=== PATIENT | male | born 1940 | race Caucasian/White ===

== ENCOUNTER → 2017-05-31 07:53 | Outpatient (CLI) | payer MEDICARE, SELFPAY ==
[2017-05-31 14:45] LABS: PHA INR Fingerstick 1.5 (0.9-1.1)
== END | disposition home or self-care (01) ==
PROVIDERS: PCP Family Medicine; Visit Provider Urology
DX: Z79.01 Long term (current) use of anticoagulants (principal); Z51.81 Encounter for therapeutic drug level monitoring
CPT/HCPCS: 85610; G0463

== ENCOUNTER 2017-06-07 08:33 | Outpatient (CLI) | payer MEDICARE, SELFPAY ==
[2017-07-26 10:21] LABS: PHA INR Fingerstick 1.7 (0.9-1.1)
== END 2017-06-07 11:00 ==
LOC: ACC 08:35
PROVIDERS: PCP Family Medicine; Visit Provider Urology
DX: Z79.01 Long term (current) use of anticoagulants (principal); Z51.81 Encounter for therapeutic drug level monitoring; I48.91 Unspecified atrial fibrillation
CPT/HCPCS: 85610; 99211; G0463

== ENCOUNTER 2017-06-16 07:35 | Outpatient (CLI) | payer MEDICARE, SELFPAY | END 2017-06-16 15:24 | disposition home or self-care (01) | LOC: ACC 07:36 | PROVIDERS: PCP Family Medicine; Visit Provider Urology | DX: Z79.01 Long term (current) use of anticoagulants (principal); Z51.81 Encounter for therapeutic drug level monitoring; I48.91 Unspecified atrial fibrillation | CPT/HCPCS: 85610; 99211; G0463 ==

== ENCOUNTER 2017-06-30 07:43 | Outpatient (CLI) | payer MEDICARE, SELFPAY ==
[2017-06-30 11:47] LABS: PHA INR Fingerstick 1.9 (0.9-1.1)
== END 2017-06-30 11:49 | disposition home or self-care (01) ==
LOC: ACC 07:44
PROVIDERS: PCP Family Medicine; Visit Provider Urology
DX: Z79.01 Long term (current) use of anticoagulants (principal); Z51.81 Encounter for therapeutic drug level monitoring; I48.91 Unspecified atrial fibrillation
CPT/HCPCS: 85610; 99211; G0463

== ENCOUNTER 2017-07-12 06:46 | Outpatient (CLI) | payer MEDICARE, SELFPAY ==
--- NOTE | 2017-07-12 07:15 | CI_ITS ---
Cerebrovascular Exam Indications: Follow-up carotid 433.10. IMPRESSIONS 1. The bilateral vertebral arteries are patent with normal antegrade flow. 2. Study suggests less than 20% stenosis involving the right internal carotid artery. 3. Study suggests 50-69% stenosis involving the left internal carotid artery. Carotid duplex study. Complete study and Doppler flow study including spectral analysis, color and mauricio scale imaging. Height: Height: 193cm. Height: 76in. Weight: Weight: 100.2kg. Weight: 220.5lb. Body mass index: BMI: 26.9kg/m^2. Body surface area: BSA: 2.33m^2. Location: Vascular laboratory. Patient status: Outpatient. Tables: Arterial flow: + +--------+--------+ Location V sys V ed + +--------+--------+ Right CCA - proximal 71.5cm/s 18.1cm/s + +--------+--------+ Right CCA - distal 75.4cm/s 20.4cm/s + +--------+--------+ Right ECA 83.7cm/s -------- + +--------+--------+ Right ICA - proximal 63.6cm/s 22cm/s + +--------+--------+ Right ICA - mid 61.7cm/s 24.4cm/s + +--------+--------+ Right ICA - distal 72.3cm/s 27.1cm/s + +--------+--------+ Right vertebral 38.4cm/s -------- + +--------+--------+ Left CCA - proximal 99.1cm/s 24cm/s + +--------+--------+ Left CCA - distal 121cm/s 24.4cm/s + +--------+--------+ Left ECA 103cm/s -------- + +--------+--------+ Left ICA - proximal 143cm/s 43.3cm/s + +--------+--------+ Left ICA - mid 75cm/s 25.9cm/s + +--------+--------+ Left ICA - distal 78.3cm/s 32cm/s + +--------+--------+ Left vertebral 29.2cm/s -------- + +--------+--------+ Velocity ratios: + + + + + + Right, V sys Right, V ed Left, V sys Left, V ed + + + + + + Max ICA/dist CCA 0.96 1.33 1.18 1.77 + + + + + + (Report amended ) Electronically signed by: Jan Montero [id number]
[2017-07-12 11:28] LABS: PHA INR Fingerstick 1.7 (0.9-1.1)
== END 2017-07-12 11:40 | disposition home or self-care (01) ==
LOC: RT 06:47
PROVIDERS: Urology; PCP Family Medicine; Visit Provider Internal Medicine
DX: I65.22 Occlusion and stenosis of left carotid artery (principal); Z79.01 Long term (current) use of anticoagulants; Z51.81 Encounter for therapeutic drug level monitoring; I48.91 Unspecified atrial fibrillation
CPT/HCPCS: 85610; 93880; 99211; G0463

== ENCOUNTER 2017-07-28 07:52 | Outpatient (CLI) | payer MEDICARE, SELFPAY ==
[2017-10-05 13:32] LABS: PHA INR Fingerstick 1.8 (0.9-1.1)
== END 2017-07-28 08:30 | disposition home or self-care (01) ==
LOC: ACC 07:54
PROVIDERS: PCP Family Medicine; Visit Provider Internal Medicine
DX: Z79.01 Long term (current) use of anticoagulants (principal); Z51.81 Encounter for therapeutic drug level monitoring; I48.91 Unspecified atrial fibrillation
CPT/HCPCS: 85610; 99211; G0463

== ENCOUNTER 2017-08-18 08:07 | Outpatient (CLI) | payer MEDICARE, SELFPAY ==
[2017-08-18 10:39] LABS: PHA INR Fingerstick 1.6 (0.9-1.1)
== END 2017-08-18 11:24 | disposition home or self-care (01) ==
PROVIDERS: Internal Medicine Cardiovascular Disease; PCP Family Medicine; Visit Provider Internal Medicine
DX: Z79.01 Long term (current) use of anticoagulants (principal); Z51.81 Encounter for therapeutic drug level monitoring; I48.91 Unspecified atrial fibrillation
CPT/HCPCS: 85610; 99211; G0463

== ENCOUNTER 2017-09-01 07:51 | Outpatient (CLI) | payer MEDICARE, SELFPAY ==
[2017-09-01 12:05] LABS: PHA INR Fingerstick 2.6 (0.9-1.1)
== END 2017-09-01 14:55 | disposition home or self-care (01) ==
PROVIDERS: Internal Medicine Cardiovascular Disease; PCP Family Medicine; Visit Provider Internal Medicine
DX: Z79.01 Long term (current) use of anticoagulants (principal); Z51.81 Encounter for therapeutic drug level monitoring; I48.91 Unspecified atrial fibrillation
CPT/HCPCS: 85610; 99211; G0463

== ENCOUNTER → 2017-09-18 16:01 | Outpatient (CLI) | payer MEDICARE, SELFPAY ==
[2017-09-18 16:26] LABS: Basophils % 0.3 % (0.1-2.0); Eosinophils # 0.7 K/mm3 (0.0-0.4); Eosinophils % 8.4 % (0.1-12.0); Hematocrit 35.6 % (42.0-52.0); Lymphocytes # 1.9 K/mm3 (0.7-4.5); Lymphocytes % 24.1 K/mm3 (10-50); Mean Corpuscular HGB Conc 30.9 g/dL (31.8-35.4); Mean Corpuscular Volume 84.1 fl (80-94); Monocytes # 0.5 K/mm3 (0.1-1.0); Monocytes % 6.9 % (1.7-9.3); Neutrophils # 4.7 K/mm3 (1.8-7.8); Neutrophils % 60.2 % (37.0-80.0); Platelet Count 172 K/mm3 (142-424); Red Blood Count 4.23 M/mm3 (4.60-6.20); White Blood Count 7.7 K/mm3 (4.8-10.8)
[2017-09-18 16:31] LABS: INR 2.53 (0.9-1.1); Prothrombin Time 25.4 seconds (9.4-11.8)
[2017-09-18 16:43] LABS: Activated Partial Thrombo Time 45.6 seconds (23.6-34.0)
[2017-09-18 17:51] LABS: Anion Gap 11.2 mEq/L (5-15); Blood Urea Nitrogen 22 mg/dL (7-18); Calcium 8.9 mg/dL (8.5-10.1); Carbon Dioxide 27 mmol/L (21.0-32.0); Chloride 104 mmol/L (98-107); Creatinine,Serum 1.76 mg/dL (0.70-1.30); Estimated Glomerular Filt Rate 38 ml/min (>60); Free T4 (Free Thyroxine) 0.75 ng/dl (0.76-1.46); GFR (African American) 46 ML/MIN (>60); Glucose 95 mg/dL (74-106); Potassium 5.2 mmoL/L (3.5-5.1); Sodium 137 mmol/L (136-145)
[2017-09-21 06:03] LABS: Vitamin B12 268 pg/mL (232-1245)
== END ==
PROVIDERS: PCP Family Medicine; Visit Provider Family Medicine
DX: Z01.818 Encounter for other preprocedural examination (principal); Z86.39 Personal history of other endocrine, nutritional and metabolic disease; Z79.01 Long term (current) use of anticoagulants; Z51.81 Encounter for therapeutic drug level monitoring
CPT/HCPCS: 36415; 80048; 82607; 84439; 84443; 85025; 85610; 85730

== ENCOUNTER 2017-09-22 07:58 | Outpatient (CLI) | payer MEDICARE, SELFPAY ==
[2017-09-22 16:21] LABS: PHA INR Fingerstick 2.3 (0.9-1.1)
== END 2017-09-22 16:52 | disposition home or self-care (01) ==
LOC: ACC 07:59
PROVIDERS: PCP Family Medicine; Visit Provider Internal Medicine
DX: Z79.01 Long term (current) use of anticoagulants (principal); Z51.81 Encounter for therapeutic drug level monitoring; I48.91 Unspecified atrial fibrillation
CPT/HCPCS: 85610; 99211; G0463

== ENCOUNTER 2017-10-20 08:05 | Outpatient (CLI) | payer MEDICARE, SELFPAY | END 2017-10-20 10:36 | disposition home or self-care (01) | LOC: ACC 08:06 | PROVIDERS: PCP Family Medicine; Visit Provider Internal Medicine | DX: Z79.01 Long term (current) use of anticoagulants (principal); Z51.81 Encounter for therapeutic drug level monitoring; I48.91 Unspecified atrial fibrillation | CPT/HCPCS: 85610; 99211; G0463 ==

== ENCOUNTER 2017-11-17 08:00 | Outpatient (CLI) | payer MEDICARE, SELFPAY ==
[2017-11-17 10:46] LABS: PHA INR Fingerstick 2.2 (0.9-1.1)
== END 2017-11-17 10:48 | disposition home or self-care (01) ==
LOC: ACC 08:01
PROVIDERS: Urology; PCP Family Medicine; Visit Provider Internal Medicine
DX: Z51.81 Encounter for therapeutic drug level monitoring (principal); Z79.01 Long term (current) use of anticoagulants; I48.91 Unspecified atrial fibrillation
CPT/HCPCS: 85610; 99211; G0463

== ENCOUNTER 2017-12-29 07:57 | Outpatient (CLI) | payer MEDICARE, SELFPAY ==
[2017-12-29 15:50] LABS: PHA INR Fingerstick 2.4 (0.9-1.1)
== END 2017-12-29 15:52 | disposition home or self-care (01) ==
LOC: ACC 07:58
PROVIDERS: PCP Family Medicine; Visit Provider Internal Medicine
DX: I48.91 Unspecified atrial fibrillation (principal); Z79.01 Long term (current) use of anticoagulants
CPT/HCPCS: 85610; 99211; G0463

== ENCOUNTER 2018-02-05 08:13 | Outpatient (CLI) | payer MEDICARE, SELFPAY ==
[2018-02-05 14:16] LABS: PHA INR Fingerstick 3.3 (0.9-1.1)
== END 2018-02-05 14:26 | disposition home or self-care (01) ==
LOC: ACC 08:14
PROVIDERS: Internal Medicine Cardiovascular Disease; PCP Family Medicine; Visit Provider Internal Medicine
DX: Z51.81 Encounter for therapeutic drug level monitoring (principal); Z79.01 Long term (current) use of anticoagulants; I48.91 Unspecified atrial fibrillation
CPT/HCPCS: 85610; 99211; G0463

== ENCOUNTER → 2018-02-22 09:40 | Outpatient (CLI) | payer MEDICARE, SELFPAY ==
--- NOTE | 2018-02-22 | CA_ITS ---
PROCEDURE: 2-D M-mode and color Doppler study INDICATIONS FOR THE TEST: Chest pain COPD Heart Murmur Tobacco Smoking Palpitations Fatigue Syncope Edema+ Hypertension+Diabetes Mellitus Rheumatic Fever SOB+[place] Obesity Hyperlipidemia Family History HD Additional History PACER, PARTIAL LUNG REMOVED 40YRS AGO D/T HISTOPLASMOSIS PATIENT INFORMATION HEIGHT: 77 WEIGHT:230 GENDER: Male B/P:130/72 2-D/M-MODE INTERPRETATION: 2-D MEASUREMENTS OBSERVED VALUES IN CMS Right Ventricular Dimension (RVDd) 2.2 Interventricular Septum (Thickness)(IVsd) 1.4 Left Ventricular Internal Dimensions(LVIDd) 4.8 Left Ventricular Posterior Wall (Thickness)(LVPWd) 1.2 Aortic Root 4.4 Aortic Cusp Separation 2.6 Left Atrial Dimensions (LAD) 4.6 2D 1. Left atrium is mildly enlarged, left ventricle is normal size, mild concentric left ventricular hypertrophy, visually estimated ejection fraction 55% with no regional wall motion abnormality. 2. The right atrium and right ventricle are normal size and contractility. 3. The aortic valve is minimally thickened and fibrosed. 4. The mitral and tricuspid valve leaflets are minimally thickened. 5. The pulmonic valve is poorly visualized. 6. No significant pericardial effusion noted. DOPPLER INTERROGATION: Doppler interrogation of the aortic, mitral and tricuspid valvular presence of mild mitral and tricuspid regurgitation, calculated right ventricular systolic pressure is 45 mmHg consistent with moderate pulmonary hypertension, grade 1 diastolic dysfunction seen with tissue Doppler evidence of raised left atrial pressure. CONCLUSION: 1. Mildly enlarged left atrium, normal left ventricular size, mild concentric left ventricular hypertrophy, visually estimated ejection fraction of 55% with no regional wall motion abnormality, grade 1 diastolic dysfunction seen with tissue Doppler evidence of raised left atrial pressure. 2. Mild mitral and tricuspid regurgitation, calculated right ventricular systolic pressure is 45 mmHg consistent with moderate pulmonary hypertension. 3. No significant pericardial effusion noted.
--- NOTE | 2018-02-22 10:15 | XR_ITS ---
XR chest 2V HISTORY: ITS.REASON: SOB ORDERING PHYSICIAN: Roshan Weeks MD PATIENT AGE: 77 years COMPARISON: 11/16/2014 FINDINGS: Cardiac pacemaker device is present. There is hyperinflation with attenuation of the upper lobe pulmonary vessels suspicious for COPD. There are chronic changes in the left lung base there is mild cardiomegaly without failure. There is blunting of the left CP angle which appears chronic. Mild biapical pleural thickening is noted. IMPRESSION: 1. Cardiomegaly with cardiac pacemaker device present. 2. Chronic changes with suspected COPD with chronic biapical pleural thickening and chronic changes in the left lung base. 3. No acute finding apparent
== END ==
PROVIDERS: PCP Family Medicine; Visit Provider Family Medicine
DX: R06.02 Shortness of breath (principal); R60.9 Edema, unspecified
CPT/HCPCS: 71046; 93306

== ENCOUNTER 2018-02-26 08:15 | Outpatient (CLI) | payer MEDICARE, SELFPAY ==
[2018-02-26 10:55] LABS: PHA INR Fingerstick 2.3 (0.9-1.1)
== END 2018-02-26 10:57 | disposition home or self-care (01) ==
LOC: ACC 08:16
PROVIDERS: PCP Family Medicine; Visit Provider Internal Medicine
DX: Z51.81 Encounter for therapeutic drug level monitoring (principal); Z79.01 Long term (current) use of anticoagulants; I48.91 Unspecified atrial fibrillation
CPT/HCPCS: 85610; 99211; G0463

== ENCOUNTER 2018-04-09 10:12 | Outpatient (CLI) | payer MEDICARE, SELFPAY ==
[2018-04-09 16:47] LABS: PHA INR Fingerstick 1.9 (0.9-1.1)
== END 2018-04-09 16:48 | disposition home or self-care (01) ==
LOC: ACC 10:13
PROVIDERS: Urology; PCP Family Medicine; Visit Provider Internal Medicine
DX: Z51.81 Encounter for therapeutic drug level monitoring (principal); Z79.01 Long term (current) use of anticoagulants; I48.91 Unspecified atrial fibrillation
CPT/HCPCS: 85610; 99211; G0463

== ENCOUNTER → 2018-06-27 10:26 | Outpatient (CLI) | payer MEDICARE, SELFPAY ==
--- NOTE | 2018-06-27 10:33 | XR_ITS ---
XR chest 2V HISTORY: ITS.REASON: dyspnea ORDERING PHYSICIAN: Rozina Dennis PATIENT AGE: 78 years COMPARISON: 02/22/2018 FINDINGS: The cardiomediastinal silhouette and pulmonary vascularity are within normal limits. Bipolar pacemaker is present from left subclavian approach.. Consolidation is noted in the left lung base No acute bony abnormalities. IMPRESSION: Left lower lobe infiltrate
== END ==
PROVIDERS: PCP Family Medicine; Visit Provider Urology
DX: I11.9 Hypertensive heart disease without heart failure (principal); I48.0 Paroxysmal atrial fibrillation; I65.23 Occlusion and stenosis of bilateral carotid arteries; N18.3 Chronic kidney disease, stage 3 (moderate); R06.09 Other forms of dyspnea; Z95.0 Presence of cardiac pacemaker
CPT/HCPCS: 71046

== ENCOUNTER → 2018-07-04 12:42 | Outpatient (CLI) | payer MEDICARE, SELFPAY ==
--- NOTE | 2018-07-04 12:45 | FL_ITS ---
FL barium swallow modified: 07/04/2018 12:45 PM CLINICAL HISTORY: Dysphagia ORDERING PHYSICIAN: Roshan Weeks MD PATIENT AGE: 78 years Comparison: None TECHNIQUE: Patient administered varying consistencies of barium contrast, while viewed in lateral position under real-time fluoroscopy with cine recording. FLUOROSCOPY TIME: 3 minutes and 33 seconds The study was performed in conjunction with speech pathologist. Please see that report & recommendations. FINDINGS: Patient was given varying consistencies of barium. There was delay in initiation of swallowing mechanism with residual. No aspiration. IMPRESSION: Delay in initiation of the swallowing mechanism with moderate residual within the piriform sinuses. No obvious aspiration.
--- NOTE | 2018-07-04 15:04 | HMH.SLMBS2 ---
Speech & Language Evaluation Speech/Language Mod Barium Swallow Start: 07/04/18 13:51 Freq: once Status: Complete Protocol: Document 07/04/18 13:51 CHELLY (Rec: 07/04/18 15:04 CHELLY [id number]) [facility] [place] Diet Dietary Recommendations Dysphagia Mechanical Soft,Thin Liquids Treatment/Strategies Treatment Recommendation Chewing Exercises,Pharyngeal Resistive Exer,Compens. Strategy Educat. Strategy/Precaution Recommend Sitting Upright (90 deg), Liquids from Straw,Small Bites and Sips,Alternate Liquids/ Solids Mod Barium Swallow Impressions Summary and Impressions Oral Phase Impression Moderate Impairment Oral Phase Summary Mr. Beasley was given the following consistencies: thins via straw and open cup, nectar via straw and open cup, honey via straw and open cup, pudding, pureed, mechanical soft. Mr. Beasley exhibited moderate impairment with bolus formation, mastication, and decreased A/P bolus propulsion . Pharyngeal Phase Impression Moderate Impairment Pharyngeal Phase Summary Mr. Beasley exhibits pharyngeal residue with all consistencies. Mr. Beasley did not aspirate during evaluation however he is at risk for aspiration with all consistencies. Speech/Language MBS Assessment/Goals/Plan Assessment Date of Evaluation: 07/04/18 Evaluation Type Initial Certification Assessment/Problems Dysphagia Does Patient Qualify for Service Yes Qualify/Failure Comment Mr. Beasley is at risk for aspiration with all consistencies. Plan Pt/Guardian verbally ack understanding Yes: of dx/prognosis/goals G -code Required Yes G-CODES ST Current Status [id number] ST Current Status Modifier CL-At least 60% but less than 80% impaired, limited or restricted ST Goal Status [id number] ST Goal Status Modifier CK-At least 40% but less than 60% impaired, limited or restricted Mod Barium Swallow Setup Exam Setup Radiologist
== END ==
PROVIDERS: PCP Family Medicine; Visit Provider Family Medicine
DX: R13.10 Dysphagia, unspecified (principal)
CPT/HCPCS: 70371; 92611

== ENCOUNTER 2020-03-19 08:27 | Outpatient (CLI) | payer MEDICARE, SELFPAY ==
[2020-03-19] VITALS (10 sets, daily range): BP systolic 102–139; BP diastolic 53–81; PULSE 61–80; RESP 18; TEMP 36.5–36.6; O2SAT 92–97
== END 2020-03-19 11:33 | disposition home health service (06) ==
PROVIDERS: PCP Family Medicine; Visit Provider Family Medicine
DX: U07.1 COVID-19 (principal)
CPT/HCPCS: 96365

== ENCOUNTER 2020-03-23 04:27 | Inpatient (IN) | payer MEDICARE, SELFPAY ==
[2020-03-23] VITALS (20 sets, daily range): BP systolic 116–152; BP diastolic 66–92; PULSE 68–146; RESP 16–32; TEMP 36.3–38.2; O2SAT 89–94; BMI 30.9; BMI 25.8; BMI 31.2
[2020-03-23 04:23] LABS: ABG Base Excess -2.1 mmol/L (-2.4-2.3); ABG HCO3 21.4 mmhg (22.0-26.0); ABG Oxygen Saturation 88 % (90-100); ABG PCO2 29.5 mmhg (35.0-45.0); ABG PH 7.48 mmol/L (7.35-7.45); ABG TCO2 22.3 mmhg (23-27); Oxygen 4 %
[2020-03-23 04:24] LABS: ABG PO2 49.9 mmhg (80-100)
--- NOTE | 2020-03-23 04:35 | XR_ITS ---
PROCEDURE: XR CHEST PORTABLE CLINICAL HISTORY: SOB Shortness of breath, Covid19 positive COMPARISON: CR CXR1 CHEST-PORTABLE from 11/16/2014 DX CXR2V XR chest 2V from 02/22/2018 DX CXR2V XR chest 2V from 06/27/2018 FINDINGS: Borderline cardiomegaly with bipolar pacemaker present left subclavian approach. Consolidation in the right lower lobe consistent with pneumonia. Underlying COPD. No acute bony abnormalities. IMPRESSION: Right lower lobe pneumonia Dictated by: Meek Welsh MD 03/23/2020 06:19 Meek Welsh MD in OV 03/23/2020 06:19
[2020-03-23 04:41] LABS: Basophils # 0.1 K/mm3 (0-0.2); Basophils % 0.6 % (0.1-2.0); Eosinophils % 0.2 % (0.1-12.0); Hematocrit 45.9 % (42.0-52.0); Hemoglobin 15.1 g/dL (14.1-18.0); Lymphocytes # 0.5 K/mm3 (0.7-4.5); Lymphocytes % 5.4 % (10-50); Mean Corpuscular HGB Conc 32.8 g/dL (31.8-35.4); Mean Corpuscular Hemoglobin 29.6 pg (27.0-31.2); Mean Corpuscular Volume 90.1 fl (80-94); Mean Platelet Volume 8.5 fl (7.4-10.4); Monocytes # 0.5 K/mm3 (0.1-1.0); Monocytes % 5.1 % (1.7-9.3); Neutrophils # 8.9 K/mm3 (1.8-7.8); Neutrophils % 88.8 % (37.0-80.0); Platelet Count 248 K/mm3 (142-424); Red Cell Distribution Width 14.4 % (11.5-17.5)
[2020-03-23 04:42] LABS: MANUAL DIFFERENTIAL MANUAL DIFFERENTIAL (MANUAL DIFF)
[2020-03-23 04:44] LABS: Chloride 111 mmol/L (98-107); Potassium 4.4 mmoL/L (3.5-5.1); Sodium 148 mmol/L (136-145)
[2020-03-23 04:46] LABS: Blood Urea Nitrogen 54 mg/dl (9-20); Creatinine Clearance Estimated 56 mL/min (50-200); Estimated Glomerular Filt Rate 42 ml/min (>60); GFR (African American) 51 ML/MIN (>60)
[2020-03-23 04:47] LABS: Alanine Aminotransferase 79 U/L (12-78); Albumin Level 4.1 g/dl (3.5-5.0); Albumin/Globulin Ratio 1.1 (1.1-1.8); Alkaline Phosphatase 175 U/L (38-126); Anion Gap 17.4 mEq/L (5-15); Aspartate Amino Transferase 122 U/L (17-59); Bilirubin,Total 2.1 mg/dl (0.2-1.3); Calcium 9.7 mg/dl (8.4-10.2); Carbon Dioxide 24 mmol/L (22.0-30.0); Globulin 3.9 g/dL (1.3-3.2); Glucose 145 mg/dl (74-100)
--- NOTE | 2020-03-23 04:50 | PC.NURSE ---
this rn went to waiting room to speak with . addressed visitor policies, code status. DNR signed at this time also password of [facility] was set up. informed we would updated her via phone once all test results were back
[2020-03-23 04:52] LABS: C-Reactive Protein 164.6 mg/L (0-4)
--- NOTE | 2020-03-23 04:56 | ECG_ITS ---
APPROVED REPORT Exam: Resting ECG HR:154 bpm ECG Measurements Heart Rate 154 AXES QRSd 84 QRS -35 QT 308 T -9 QTc 493 Conclusion Atrial fibrillation with rapid ventricular response Left axis deviation Nonspecific ST and T wave abnormality, probably digitalis effect Abnormal ECG Electronically signed by : Jeremias Murray, 03/23/2020 22:43:38
[2020-03-23 04:59] LABS: Lactic Acid 2.1 mmol/L (0.7-2.1)
[2020-03-23 05:04] LABS: Procalcitonin 0.963 ng/mL (0.0-2.0)
[2020-03-23 05:08] LABS: Coronavirus 19 IgG Antibody Positive (Negative); Coronavirus 19 IgM Antibody Negative (Negative)
[2020-03-23 05:10] LABS: Erythrocyte Sedimentation Rate 41 mm/hr (0-20)
[2020-03-23 05:12] LABS: Lymphocytes % 9 % (10-50); Monocytes % 1 % (2-9); Neutrophils % 81 % (42-76); Platelet Estimate Normal; RBC Morphology Normal; Total Cells Counted 100; Toxic Granulation 1+
[2020-03-23 05:13] LABS: Troponin I 0.07 ng/ml (0.00-0.034)
--- NOTE | 2020-03-23 05:36 | HMH.EDSOB ---
ED Disposition Clinical Impression: HCAP (healthcare-associated pneumonia), COVID-19 virus detected, Sacral decubitus ulcer, stage II, RENETTA (acute kidney injury), Severe sepsis with acute organ dysfunction A-fib Qualifiers: Atrial fibrillation type: unspecified chronic Qualified Code(s): I48.20 - Chronic atrial fibrillation, unspecified Dementia Qualifiers: Dementia type: unspecified type Dementia behavioral disturbance: without behavioral disturbance Qualified Code(s): F03.90 - Unspecified dementia without behavioral disturbance Disposition: Admitted As Inpatient Condition on Discharge: Serious - Critical Care Critical Care Time: No Attestation: On 03/23/20, the high probability of a clinically significant, sudden or life threatening deterioration of the following system(s) required my full and direct attention, intervention and personal management. The time I documented below is in addition to time spent performing reported procedures but includes the following listed in this critical care notation. Medical Decision Making - Medical Records Medical records reviewed: Yes: I reviewed the patient's medical records. - Edwin Inquiry Pt receiving controlled substance: No Vital Signs: 03/23/20 04:21 03/23/20 04:51 03/23/20 05:21 Temperature 100.8 F H Temperature Source Rectal Pulse Rate [Right] 76 111 H 143 H Respiratory Rate 28 H 26 H 30 H Blood Pressure [Right Arm] 126/71 132/87 116/87 Blood Pressure Mean [Right Arm] 89 102 96 Blood Pressure Source [Right Arm] Blood Pressure Position [Right Arm] 02 Sat by Pulse Oximetry 92 L 89 L 90 L Oxygen Delivery Method Nasal Cannula Nasal Cannula Nasal Cannula Oxygen Flow Rate (LPM) 4 2 4 03/23/20 05:30 03/23/20 05:41 03/23/20 05:59 Temperature 100.3 F H Temperature Source Rectal Pulse Rate [Right] 143 H 146 H 112 H Respiratory Rate 28 H 28 H Blood Pressure [Right Arm] 143/79 H 132/86 141/69 H Blood Pressure Mean [Right Arm] 100 101 93 Blood Pressure Source [Right Arm] Blood Pressure Position [Right Arm] 02 Sat by Pulse Oximetry 91 L 90 L 90 L Oxygen Delivery Method Nasal Cannula Nasal Cannula Nasal Cannula Oxygen Flow Rate (LPM) 4 4 4 03/23/20 06:30 03/23/20 06:46 03/23/20 07:00 Temperature Temperature Source Pulse Rate [Right] 130 H 68 126 H Respiratory Rate 32 H 30 H Blood Pressure [Right Arm] 134/79 136/92 H 139/78 Blood Pressure Mean [Right Arm] 97 106 98 Blood Pressure Source [Right Arm] Automatic Cuff Blood Pressure Position [Right Arm] Supine 02 Sat by Pulse Oximetry 89 L 90 L 91 L Oxygen Delivery Method Nasal Cannula Nasal Cannula Nasal Cannula Oxygen Flow Rate (LPM) 4 4 4 03/23/20 07:41 Temperature Temperature Source Pulse Rate [Right] 126 H Respiratory Rate Blood Pressure [Right Arm] 124/82 Blood Pressure Mean [Right Arm] 96 Blood Pressure Source [Right Arm] Automatic Cuff Blood Pressure Position [Right Arm] Sitting 02 Sat by Pulse Oximetry 93 L Oxygen Delivery Method Nasal Cannula Oxygen Flow Rate (LPM) - Lab Data Lab results reviewed: Yes: I reviewed the patient's lab results. Lab Results 03/23/20 04:15: WBC 10.0, RBC 5.10, Hgb 15.1, Hct 45.9, MCV 90.1, MCH 29.6, MCHC 32.8, RDW 14.4, Plt Count 248, MPV 8.5, Neut % (Auto) 88.8 H, Lymph % (Auto) 5.4 L, [facility] % (Auto) 5.1, Eos % (Auto) 0.2, Baso % (Auto) 0.6, Neut # (Auto) 8.9 H, Lymph # (Auto) 0.5 L, [facility] # (Auto) 0.5, Eos # (Auto) 0.0, Baso # (Auto) 0.1, Total Counted 100, Neutrophils % (Manual) 81 H, Band Neutrophils % 9.0 H, Lymphocytes % (Manual) 9 L, Monocytes % (Manual) 1 L, Toxic Granulation 1+, Platelet Estimate Normal, RBC Morphology Normal 03/23/20 04:15: Sodium 148 H, Potassium 4.4, Chloride 111 H, Carbon Dioxide 24, Anion Gap 17.4 H, BUN 54 H, Creatinine 1.60 H, Estimated Creat Clear 56, Estimated GFR 42 L, Est GFR ( Amer) 51 L, Glucose 145 H, Calcium 9.7, Total Bilirubin 2.1 H, AST 122 H, ALT 79 H, Alkaline Phosphatase 175 H, C-Reactiv
[2020-03-23 05:39] LABS: T4 (Thyroxine) 9.7 ug/dl (5.53-11.0)
[2020-03-23 05:53] LABS: Thyroid Stimulating Hormone 3.19 uIU/mL (0.465-4.68)
--- NOTE | 2020-03-23 05:56 | PC.NURSE ---
cardizem bolus increased 15ml/hr
--- NOTE | 2020-03-23 07:46 | PC.NURSE ---
speaking with Dr. Weeks
--- NOTE | 2020-03-23 07:52 | PC.NURSE ---
called care management for bed placement
--- NOTE | 2020-03-23 07:53 | PC.NURSE ---
Spoke to Sayda in pharmacy for antibiotic dosing per Dr Garcia's request. Recommendations were for Cefepime and Levaquin. Pharmacy stated they would enter in the orders, patient has already received the first dose of Levaquin.
[2020-03-23 08:35] LABS: Reflex Lactic Add Lactic Reflex
[2020-03-23 08:46] LABS: Troponin I 0.06 ng/ml (0.00-0.034)
--- NOTE | 2020-03-23 09:09 | HMH.HP ---
*Admission Date: 03/23/20 <Elicia Bello - 03/23/20 09:31> *Chief complaint: respiratory distress <Elicia Bello - 03/23/20 12:18> *History of present illness: Mr. Beasley is a 79-year-old male with a history of hypothyroidism, hypertension, atrial fibrillation, and dementia. He was sent from [facility] due to progressive chest congestion and decrease in O2 sats. Following are notes from [place] prior to transport to [facility] ED: 03/23/2020 03:27 AM Call received from Dr Noyola. Order received to send Ramón to [facility] for respiratory insufficiency. Call attempted to resident's X2. Will try 2nd emergency contact. 03/23/2020 02:52 AM Sats are running now between 84%- 87%. Respirations 20. O2 at 3L. Was using mask and now to [place]. 86 percentage. HR 104and irregular. Call to . Message left. Turned and repositioned. Cough productive. Crackles and wheezes ausculated upper lobes bilat. Sats at 86%. Call made to business continuity planning director Dr Noyola. VS now 115/79 HR 122 irreg Sat 86% Temp 99.4ax 03/23/2020 01:06 AM O2 SATs at low to mid 80's. HOB at 45'. Respirations at 20. O2 initiated 2L per NC. Sats remain fluctuating in 80's. Increased to 3L. Sats remain in mid to upper 80's. O2 mask initiated. Sat at 92% at present. Lung sounds diminished in bases. Ronchi upper lobes bilat. Temperature at 100 axillary. Productive cough. Will continue to monitor. 03/22/2020 07:50 PM Called [facility] and spoke with Caridad to order portable CXray. Made them aware that resident recently tested positive for Covid. 03/22/2020 07:20 PM [address] Paged on-call Dr. Noyola for Dr. Weeks. Resident given Robitussin DM PRN and improved congestion somewhat. Congestion To note: pt was started on Pepcid, Zinc, Vit D, Vit C at [facility] when first diagnosed; he also received Bamlanivimab IV at [facility] 03/12/2020. With evaluation in the ER pt was found to have a Temp of 100.8. O2 sats ranged from 89-92 on O2 . He was in at fib with a varying V response from 110-120. WBC was 10,000; BUN/CR 54/1.6; LFT were noted to be elevated. COVID IGG was + and IGM neg; PCR was + as well. CXR results pending at time of this exam. Pt was felt to have HCAP with dehydration and was thus admitted. At the time of this exam pt is nonverbal. He does open his eyes during the exam <Elicia Bello 03/23/20 12:18> [facility] History Medical History: Reports:: Atrial Fibrillation, Hypertension, Internal Pacemaker, Renal Disease <Elicia Bello 03/23/20 09:31> *Have you ever received a pneumonia vaccine?: Yes <Elicia Bello 03/23/20 09:31> *Have you received a flu vaccine this season?: Yes <Elicia Bello 03/23/20 09:31> Other Medical History: Reports: Hypothyroidism <Elicia Bello 03/23/20 09:31> Other Surgeries: Yes: Pacemaker, Other (collapsed lung) <Elicia Bello 03/23/20 09:31> - *Social History Smoking Status: Former smoker <Elicia Bello 03/23/20 09:31> Alcohol Intake: never <Elicia Bello 03/23/20 09:31> Alcohol Intake Frequency:: other <Elicia Bello 03/23/20 09:31> Substance Use Type: denies use <Elicia Bello 03/23/20 09:31> *Occupational Status:: retired <Elicia Bello 03/23/20 09:31> Housing: custodial <Elicia Bello 03/23/20 09:31> *Travel in the last 8 weeks: None <Elicia Bello 03/23/20 09:31> Family Hx:: No significant family history <Elicia Bello 03/23/20 09:31> Review of Systems - Review of Systems Review of systems:: other <Elicia Bello 03/23/20 12:18> obtained info from previous visits and documentation <Elicia Bello 03/23/20 12:18> - Constitutional Reports fever(s) <Elicia Bello 03/23/20 12:18> - ENT Reports dry mouth <Elicia Bello 03/23/20 12:18> - *Cardiovascular Reports irregular heart rhythm <Elicia Bello 03/23/20 12:18> - *Respiratory Reports cough <Elicia Bello 03/23/20 12:18> - *Gastrointestinal Denies loose stools, Denies vomiting <Elicia Bello 03/23/20 12:18>
[2020-03-23 10:27] LABS: Lactic Acid Follow Up (RFLX 1) 2.8 mmol/L (0.7-2.1)
[2020-03-23 11:39] LABS: Troponin I 0.06 ng/ml (0.00-0.034)
[2020-03-23 11:52] LABS: Reflex Lactic (2 hrs) Add Lactic Reflex
--- NOTE | 2020-03-23 11:57 | HMH.PHAVTE ---
[facility] Pharmacy VTE Monitoring - Patient Demographics Admission date: 03/23/20 Report Date: 03/23/20 Time: 11:57 Allergies/Adverse Reactions: Patient Allergies No Known Allergies Allergy (Verified 03/23/20 04:35) Height: 1.85 m Weight: 106.594 kg Patient Problems: Current Active Problems HCAP (healthcare-associated pneumonia) (Acute) A-fib (Acute) COVID-19 virus detected (Acute) Sacral decubitus ulcer, stage II (Acute) RENETTA (acute kidney injury) (Acute) Severe sepsis with acute organ dysfunction (Acute) Dementia (Acute) - VTE Risk Labs: VTE Related Lab Results Hgb 15.1 g/dL (14.1-18.0) 03/23/20 04:15 Hct 45.9 % (42.0-52.0) 03/23/20 04:15 Plt Count 248 K/mm3 (142-424) 03/23/20 04:15 BUN 54 mg/dl (9-20) H 03/23/20 04:15 Creatinine 1.60 mg/dl (0.66-1.25) H 03/23/20 04:15 Estimated Creat Clear 56 mL/min (50-200) 03/23/20 04:15 Was VTE Risk Assessment Performed: Yes VTE Score: 4 VTE Risk Level: Low Risk - Prophylaxis VTE Prophylaxis Ordered?: Yes Types of VTE Prophylaxis: Pharmacological Pharmacologic Type: Enoxaparin
[2020-03-23 12:40] LABS: Lactic Acid Follow up (RFLX 2) 2.5 mmol/L (0.7-2.1)
--- NOTE | 2020-03-23 13:29 | DIET.NUTRFU ---
Confirmed with Ruben Oliver pt has dysphagia and follows soft mechanical diet with nectar thickened liquids at [facility]. Pt at risk malnutrition rt increased metabolic demands of COVID-19 with dementia. Pt presented dehydrated with stage II decubitus ulcer. Also of note he has gained 24# over the past 3 months, possibly fluid retention. Elevated CRP and hepatic labs noted as well. He requires full assistance feeding. Encouragement/cueing appreciated, please observe aspiration precautions. Soft mechanical diet with nectar thickened liquids and protein supplements BID given. Will monitor pt closely and adjust nutritional care plan as indicated.
--- NOTE | 2020-03-23 14:38 | HMH.PHAINT ---
HOME MEDICATION COMPLETED USING LIST FROM LORI LEWIS
--- NOTE | 2020-03-23 15:29 | PC.NURSE ---
Patient admitted from ER. Resides at [place]. History taken by patients . Neurologically patient has advanced dementia. Patient mumbles intermitently but does not follow any commands. Patient will not swallow pills or drink any fluids. Cardiac: patient is on a cardizem drip for rate control. Drip is running at 15mg per hour. Heartrate is currently 97 and has been elevated throughout shift. MD aware. Rate is sinus tach. Pulmonary patient was admitted on 2 liters of oxygen, immediately increased to 4 liters and has since been placed on the ventimask per . Patient breathes out of mouth at baseline per . patient is incontinent to urine. Had 1 wet brief. GI patient is incontinent. There appeared to be very loose stool in patient brief when they urinated. Skin: Patient has a stage 2 dti on coccyx. Photographs taken. Mepilex applied with barrier cream. Patients skin is cool to the touch. Patient states that patient has not been able to eat for several days. Patient has not been able to swallow pills or food. MD aware. Meds switched to IV that are able to be switched. Will continue to monitor.
--- NOTE | 2020-03-23 19:30 | PC.WOUNDNOTE ---
Wound Location: Length: 6 cm Width: 5 cm Depth: Undermining Y/N: no Tunneling cm: Granulation %: Slough/necrotic tissue %: Inflammation/swelling Y/N: Pain and/or tenderness Y/N: Exudate: serous Color: red, black Consistency: Thin Amount: small Odor Y/N:
[2020-03-23 19:33] LABS: Microscopic, Urine URINE MICROSCOPIC (MICROSCOPIC)
[2020-03-23 20:19] LABS: Appearance,Urine CLEAR (Clear); Bilirubin,Urine Negative (Negative); Blood, Urine Negative (Negative); Glucose,Urine (UA) Negative (Negative); Ketones,Urine Negative (Negative); Leukocyte Esterase,Urine Negative (Negative); Nitrate,Urine Negative (Negative); PH,Urine 5.5 (5.0-8.5); Protein,Urine 2+ (Negative); Specific Gravity, Urine >= 1.030 (1.005-1.030)
[2020-03-23 20:23] LABS: Color,Urine Orange (Yellow)
[2020-03-23 20:36] LABS: Amorphous Sediment,Urine 1+ /lpf; Bacteria,Urine 1+ /lpf; Mucus,Urine 1+ /lpf
--- NOTE | 2020-03-23 23:45 | PC.NURSE ---
Cardizem titrated down to 10mg/hr (10ml/hr). HR steadily controlled 80s-mid 90s.
[2020-03-24] VITALS (22 sets, daily range): BP systolic 111–144; BP diastolic 52–81; PULSE 69–138; RESP 20–28; TEMP 36.1–37.1; O2SAT 91–96
--- NOTE | 2020-03-24 05:24 | PC.NURSE ---
Pt has been completely unoriented and nonverbal. Eyes are open and move but pt does not follow commands. Pt lung sounds are diminished with fine crackles scattered throughout. Pt has been on venti mask, 9L, 35% throughout the night with sats in the low to mid 90s. Productive cough noted. Pt has not had any oral intake due to inability to clear secretions and swallow and has been suctioned several times. Pt has been tachycardic through the night and has been Vpaced with frequent PVCs. UOP is adequate via null. Abd is soft and nontender. Pt had one dark tarry BM. Turned q2h. VSS, call light in reach, no concerns at this time.
[2020-03-24 06:24] LABS: Anion Gap 13.9 mEq/L (5-15); Blood Urea Nitrogen 59 mg/dl (9-20); Calcium 8.8 mg/dl (8.4-10.2); Carbon Dioxide 22 mmol/L (22.0-30.0); Chloride 118 mmol/L (98-107); Creatinine Clearance Estimated 76 mL/min (50-200); Estimated Glomerular Filt Rate 58 ml/min (>60); GFR (African American) 71 ML/MIN (>60); Glucose 133 mg/dl (74-100); Potassium 3.9 mmoL/L (3.5-5.1)
[2020-03-24 06:30] LABS: Sodium 150 mmol/L (136-145)
--- NOTE | 2020-03-24 07:00 | PC.NURSE ---
Late entry: titrated Cardizem gtt back up to 15mg/hr (15ml/hr) at 0230
--- NOTE | 2020-03-24 09:06 | HMH.ACPN2 ---
Internal Medicine - PN: Amelie *Date: 03/24/20 *Time: 09:06 Interval history: No new problems reported overnight. Exam Vital signs and Labs for Last 24 Hours: Temp Pulse Resp BP Pulse Ox 98.0 F 105 H 24 144/74 H 93 L 03/24/20 07:46 03/24/20 07:46 03/24/20 07:46 03/24/20 07:46 03/24/20 07:46 Laboratory Results - last 24 hr 03/23/20 09:30: Lactate 2.8 H 03/23/20 10:45: Troponin I 0.06 H 03/23/20 12:01: Lactate 2.5 H 03/23/20 19:00: Urine Color [place], Urine Appearance Clear, Urine pH 5.5, Ur Specific [place] >= 1.030, Urine Protein 2+, Urine Glucose (UA) Negative, Urine Ketones Negative, Urine Blood Negative, Urine Nitrate Negative, Urine Bilirubin Negative, Urine Urobilinogen 1.0, Ur Leukocyte Esterase Negative, Urine RBC 3-5, Urine WBC 3-5, Amorphous Sediment 1+, Urine Bacteria 1+, Urine Mucus 1+ 03/24/20 05:25: Sodium 150 H, Potassium 3.9, Chloride 118 H, Carbon Dioxide 22, Anion Gap 13.9, BUN 59 H, Creatinine 1.20 D, Estimated Creat Clear 76, Estimated GFR 58 L, Est GFR ( Amer) 71 D, Glucose 133 H, Calcium 8.8 Vital Signs - 24 hr 03/23/20 11:01 03/23/20 11:06 03/23/20 12:00 Temperature 98.9 F 97.4 F L Pulse Rate 113 H Pulse Rate [Right] 99 H Respiratory Rate 16 28 H Blood Pressure 127/67 Blood Pressure [Right Arm] 139/82 02 Sat by Pulse Oximetry 91 L 90 L 03/23/20 16:00 03/23/20 17:05 03/23/20 20:00 Temperature 97.6 F 98.7 F Pulse Rate 102 H 100 H Pulse Rate [Right] 97 H 114 H Respiratory Rate 16 22 Blood Pressure Blood Pressure [Right Arm] 140/91 H 117/66 02 Sat by Pulse Oximetry 93 L 94 L 92 L 03/23/20 21:00 03/23/20 22:00 03/24/20 00:00 Temperature 98.1 F 97.6 F Pulse Rate Pulse Rate [Right] 92 H 95 H 89 Respiratory Rate 22 23 20 Blood Pressure Blood Pressure [Right Arm] 144/85 H 152/87 H 02 Sat by Pulse Oximetry 91 L 92 L 96 03/24/20 02:00 03/24/20 02:30 03/24/20 03:00 Temperature 98.3 F 98.6 F Pulse Rate Pulse Rate [Right] 69 138 H 118 H Respiratory Rate 22 28 H Blood Pressure Blood Pressure [Right Arm] 125/81 02 Sat by Pulse Oximetry 91 L 93 L 93 L 03/24/20 03:08 03/24/20 03:46 03/24/20 04:00 Temperature 98.7 F Pulse Rate 119 H 100 H Pulse Rate [Right] 81 Respiratory Rate 22 Blood Pressure Blood Pressure [Right Arm] 133/74 02 Sat by Pulse Oximetry 93 L 03/24/20 06:00 03/24/20 07:46 Temperature 98.7 F 98.0 F Pulse Rate Pulse Rate [Right] 97 H 105 H Respiratory Rate 20 24 Blood Pressure Blood Pressure [Right Arm] 133/74 144/74 H 02 Sat by Pulse Oximetry 93 L 93 L I & O for Last 24 hours: Intake & Output 03/21/20 03/22/20 03/23/20 03/24/20 23:59 23:59 23:59 23:59 Intake Total 610 / 610 0 / 0 Output Total 301 / 301 Balance 610 / 509 -301 / -301 Weight 235 lb 14.314 oz Microbiology Reports for the Last 24 Hours: Microbiology 03/24/20 03:40 Sputum - Expectorated Sputum Gram Stain - Final 03/23/20 04:30 Nasopharyngeal Coronavirus COVID-19 PCR - Final - Constitutional no acute distress - *Routine HEENT Exam Head: Present: normocephalic Eye: Present: EOMI, PERRL ENT: Present: mucous membranes moist - *Routine Neck Exam Present: supple. Absent: lymphadenopathy - *Routine Respiratory Exam Present: crackles (few bibasilar). Absent: wheezes - *Routine Cardiovascular Exam Present: RRR - *Routine Abdominal Exam Present: soft, normoactive bowel sounds. Absent: tenderness - *Routine Extremities Exam Absent: cyanosis, clubbing, edema - *Routine Skin Exam Present: warm. Absent: rash - *Routine Neurological Exam Present: alert (non verbal, unable to follow commands) Assessment and Plan (1) A-fib Status: Chronic Qualifiers: Atrial fibrillation type: unspecified chronic Qualified Code(s): I48.20 - Chronic atrial fibrillation, unspecified Category: Medical Code(s): I48.91 - Unspecified atrial fibrillation (2) RENETTA (acute kidne
--- NOTE | 2020-03-24 09:40 | SW/DCPLANNER ---
Addendum entered by Cathy Yan 03/27/20 06:46: UPDATES SENT TO [facility] THIS MORNING ON THIS PATIENT... PATIENT IS NOT READY FOR A DISPOSITION AT THIS TIME... Original Note: SENT UPDATED INFORMATION ON THIS PATIENT TO [facility]... PATIENT IS NOT READY FOR A DISPOSITION YET, WILL FOLLOW UP ONCE PATIENT IS MEDICALLY READY TO DISCHARGE...
[2020-03-24 15:27] LABS: Basophils # 0.1 K/mm3 (0-0.2); Basophils % 0.7 % (0.1-2.0); Eosinophils % 0.2 % (0.1-12.0); Hematocrit 43.9 % (42.0-52.0); Hemoglobin 13.6 g/dL (14.1-18.0); Lymphocytes # 0.5 K/mm3 (0.7-4.5); Lymphocytes % 4.6 % (10-50); Mean Corpuscular Hemoglobin 29.2 pg (27.0-31.2); Mean Corpuscular Volume 94.2 fl (80-94); Monocytes # 0.4 K/mm3 (0.1-1.0); Monocytes % 4.2 % (1.7-9.3); Neutrophils # 9.4 K/mm3 (1.8-7.8); Neutrophils % 90.4 % (37.0-80.0); Platelet Count 239 K/mm3 (142-424); Red Blood Count 4.66 M/mm3 (4.60-6.20); Red Cell Distribution Width 14.8 % (11.5-17.5); White Blood Count 10.4 K/mm3 (4.8-10.8)
[2020-03-24 15:28] LABS: MANUAL DIFFERENTIAL MANUAL DIFFERENTIAL (MANUAL DIFF)
[2020-03-24 15:44] LABS: Burr Cells 1+; Hypochromasia 1+; Lymphocytes % 4 % (10-50); Monocytes % 5 % (2-9); Neutrophils % 91 % (42-76); Platelet Estimate Normal; RBC Morphology Normal; Total Cells Counted 100
--- NOTE | 2020-03-24 18:32 | PC.NURSE ---
Pt is nonverbal and unable to follow commands. Cardizem gtt has remained at 15mg/hr the whole shift with hr in the upper 90's. Wheezes noted to left upper lobe. He remains on venti mask @9L 15% w/O2 sats running in the low 90's. Dressing to buttocks changed this shift after previous one was soiled. Tejeda is to bedside draining clear straw colored urine. No change from previous assessment. Will give report to oncoming nurse.
[2020-03-25] VITALS (16 sets, daily range): BP systolic 105–127; BP diastolic 65–84; PULSE 70–109; RESP 16–30; TEMP 36.2–37.1; O2SAT 89–95
--- NOTE | 2020-03-25 04:54 | PC.NURSE ---
pt has been resting through shift. cardizem drip remains at 15mg/hr. turned throughout shift. pt is nonverbal and resistant to care at times. iv patient. null draining clear yellow urine. call light in reach. will continue to monitor
--- NOTE | 2020-03-25 08:09 | HMH.ACPN2 ---
<Elicia Bello - Last Filed: 03/25/20 08:09> Internal Medicine - PN: Subj *Date: 03/25/20 *Time: 08:09 Interval history: Patient has been stable with oxygen per Ventimask at 35%. He is nonverbal which is his normal status. Sometimes he does resist with care. He continues on a Cardizem drip with a more controlled ventricular rate. He also has a Tejeda to bedside drainage. Exam Vital signs and Labs for Last 24 Hours: Temp Pulse Resp BP Pulse Ox 98.2 F 82 28 H 124/81 90 L 03/25/20 06:00 03/25/20 06:00 03/25/20 06:00 03/25/20 06:00 03/25/20 02:00 Laboratory Results - last 24 hr 03/24/20 15:05: WBC 10.4, RBC 4.66, Hgb 13.6 L, Hct 43.9, MCV 94.2 H, MCH 29.2, MCHC 31.0 L, RDW 14.8, Plt Count 239, MPV 9.0, Neut % (Auto) 90.4 H, Lymph % (Auto) 4.6 L, [place] % (Auto) 4.2, Eos % (Auto) 0.2, Baso % (Auto) 0.7, Neut # (Auto) 9.4 H, Lymph # (Auto) 0.5 L, [place] # (Auto) 0.4, Eos # (Auto) 0.0, Baso # (Auto) 0.1, Total Counted 100, Neutrophils % (Manual) 91 H, Lymphocytes % (Manual) 4 L, Monocytes % (Manual) 5, Platelet Estimate Normal, RBC Morphology Normal, Hypochromasia 1+, Jv Cells 1+ I & O for Last 24 hours: Intake & Output 03/22/20 03/23/20 03/24/20 03/25/20 11:59 11:59 11:59 11:59 Intake Total 600 / 600 5306 / 5306 Output Total 301 / 301 600 / 600 Balance 600 / 600 -291 / -291 4706 / 4706 Weight 195 lb 14.422 oz 235 lb 14.314 oz Microbiology Reports for the Last 24 Hours: Microbiology 03/23/20 04:15 Blood Blood Culture - Preliminary NO GROWTH AFTER 48 HOURS 03/23/20 04:15 Blood Blood Culture - Preliminary NO GROWTH AFTER 48 HOURS 03/24/20 03:40 Sputum - Expectorated Sputum Gram Stain - Final - Constitutional no acute distress Comments: Lying quietly with eyes wide open. He is nonverbal. - *Routine Respiratory Exam Present: rhonchi (Bilateral) - *Routine Cardiovascular Exam Present: irregular rhythm (Monitor showing atrial fib with some paced rhythm.) - *Routine Abdominal Exam Present: soft, normoactive bowel sounds. Absent: tenderness Comments: Tejeda catheter to bedside drainage - *Routine Extremities Exam Absent: edema - *Routine Neurological Exam Eyes are open. Difficult to determine if he is responsive to voice stimulation Assessment and Plan (1) A-fib Status: Chronic Qualifiers: Atrial fibrillation type: unspecified chronic Qualified Code(s): I48.20 - Chronic atrial fibrillation, unspecified Category: Medical Code(s): I48.91 - Unspecified atrial fibrillation (2) RENETTA (acute kidney injury) Status: Acute Category: Medical Code(s): N17.9 - Acute kidney failure, unspecified (3) COVID-19 virus detected Status: Acute Category: Medical Code(s): U07.1 - COVID-19 (4) Dementia Status: Acute Qualifiers: Dementia type: unspecified type Dementia behavioral disturbance: without behavioral disturbance Qualified Code(s): F03.90 - Unspecified dementia without behavioral disturbance Category: Medical Code(s): F03.90 - Unspecified dementia without behavioral disturbance (5) HCAP (healthcare-associated pneumonia) Status: Acute Category: Medical Code(s): J18.9 - Pneumonia, unspecified organism (6) Sacral decubitus ulcer, stage II Status: Chronic Category: Medical Code(s): L89.152 - Pressure ulcer of sacral region, stage 2 (7) Severe sepsis with acute organ dysfunction Status: Acute Category: Medical Code(s): A41.9 - Sepsis, unspecified organism; R65.20 - Severe sepsis without septic shock (8) Chronic kidney disease, stage 3 Status: Chronic Category: Medical Code(s): N18.3 - Chronic kidney disease, stage 3 (moderate) (9) Cardiac pacemaker in situ Status: Chronic Category: Medical Code(s): Z95.0 - Presence of cardiac pacemaker (10) Hypertensive heart disease without heart failure Status: Chronic Category: Medical
--- NOTE | 2020-03-25 09:07 | PC.NURSE ---
notified lab that labs have been drawn and are ready for pickup
[2020-03-25 09:30] LABS: Chloride 123 mmol/L (98-107)
[2020-03-25 09:33] LABS: Blood Urea Nitrogen 55 mg/dl (9-20); Creatinine Clearance Estimated 76 mL/min (50-200); Estimated Glomerular Filt Rate 58 ml/min (>60); GFR (African American) 71 ML/MIN (>60)
[2020-03-25 09:34] LABS: Calcium 8.6 mg/dl (8.4-10.2); Carbon Dioxide 21 mmol/L (22.0-30.0); Glucose 137 mg/dl (74-100)
[2020-03-25 09:42] LABS: Sodium 154 mmol/L (136-145)
--- NOTE | 2020-03-25 16:01 | DIET.NUTRFU ---
Addendum entered by Shirin Wilson 03/27/20 14:24: Day 5 0% PO intake rt inability to swallow. Na and BUN improved- 140, 46. BG remain moderately elevated around 130. Please note pt's bed unable to weigh pt, therefore do not have enough information to determine if pt is malnourished per [facility] standards at this time. Pt does have moderate fluid retention noted today as well as a stage II decubitus ulcer which he had prior to admit. MD decision to hold off on nutrition noted, continuing to monitor. Original Note: Pt on day 3 of 0 PO intake rt inability to tolerate PO intake. He has had to be suctioned following attempts. Remains dehydrated- 154Na, 55 BUN. BG ~130. No weight record available. Pt is at high risk malnutrition rt COVID 19 with dementia. If he continues without improvement in ability to tolerate PO intake over the next 48hrs, nutritional support may be indicated. Continuing to monitor pt and further care plans.
--- NOTE | 2020-03-25 18:26 | PC.NURSE ---
Pt is nonverbal and unable to follow commands. He is easily aroused and will open his eyes to touch or sound. He has had a bath and was shaved today per S LÓPEZ Crespo and Mary Navas RN. He remains on a cardizem gtt @10mgs/hr for rate control. Tejeda is to bedside draining clear dark urine. He is still unable to swallow and therefore unable to eat. Dressing to coccyx was changed today, it is clean, dry and intact. Spoke with today who was updated on pts condition and current plan of care. Will report to oncoming nurse.
--- NOTE | 2020-03-25 20:21 | PC.NURSE ---
@1950 titrated Cardizem gtt down to 5ml/hr (5mg/hr). HR 70s-low 90s. more v-paced
[2020-03-26] VITALS (17 sets, daily range): BP systolic 108–142; BP diastolic 71–102; PULSE 77–127; RESP 20–26; TEMP 36.4–36.7; O2SAT 89–99; BMI 31.1
[2020-03-26 07:40] LABS: Alanine Aminotransferase 51 U/L (12-78); Albumin Level 2.9 g/dl (3.5-5.0); Albumin/Globulin Ratio 0.9 (1.1-1.8); Alkaline Phosphatase 111 U/L (38-126); Anion Gap 13.5 mEq/L (5-15); Aspartate Amino Transferase 62 U/L (17-59); Bilirubin,Total 1.4 mg/dl (0.2-1.3); Blood Urea Nitrogen 52 mg/dl (9-20); Calcium 8.7 mg/dl (8.4-10.2); Carbon Dioxide 19 mmol/L (22.0-30.0); Chloride 120 mmol/L (98-107); Creatinine Clearance Estimated 82 mL/min (50-200); Estimated Glomerular Filt Rate 65 ml/min (>60); GFR (African American) 78 ML/MIN (>60); Globulin 3.2 g/dL (1.3-3.2); Glucose 125 mg/dl (74-100); Potassium 4.5 mmoL/L (3.5-5.1); Sodium 148 mmol/L (136-145); Total Protein,Serum 6.1 g/dl (6.3-8.2)
--- NOTE | 2020-03-26 08:39 | HMH.ACPN2 ---
Internal Medicine - PN: Subj *Date: 03/26/20 *Time: 08:39 Interval history: Patient became hypoxic overnight and had to be placed on a non rebreather mask, cardiazem drip weaned down to 5. Exam Vital signs and Labs for Last 24 Hours: Temp Pulse Resp BP Pulse Ox 97.5 F L 109 H 25 H 129/71 97 03/26/20 08:00 03/26/20 08:00 03/26/20 08:00 03/26/20 08:00 03/26/20 08:00 Laboratory Results - last 24 hr 03/25/20 09:08: Sodium 154 H*, Potassium 4.0, Chloride 123 H, Carbon Dioxide 21 L, Anion Gap 14.0, BUN 55 H, Creatinine 1.20, Estimated Creat Clear 76, Estimated GFR 58 L, Est GFR ( Amer) 71, Glucose 137 H, Calcium 8.6 03/26/20 05:40: Sodium 148 H, Potassium 4.5, Chloride 120 H, Carbon Dioxide 19 L, Anion Gap 13.5, BUN 52 H, Creatinine 1.10, Estimated Creat Clear 82, Estimated GFR 65, Est GFR ( Amer) 78, Glucose 125 H, Calcium 8.7, Total Bilirubin 1.4 H, AST 62 H, ALT 51, Alkaline Phosphatase 111, Total Protein 6.1 L, Albumin 2.9 L, Globulin 3.2, Albumin/Globulin Ratio 0.9 L Vital Signs - 24 hr 03/25/20 09:21 03/25/20 11:33 03/25/20 12:00 Temperature 98.0 F 98.0 F Pulse Rate 80 Pulse Rate [Right] 77 109 H Respiratory Rate 20 22 Blood Pressure [Right Arm] 117/68 114/69 02 Sat by Pulse Oximetry 95 92 L 03/25/20 14:00 03/25/20 15:59 03/25/20 16:00 Temperature 97.4 F L Pulse Rate 70 Pulse Rate [Right] 90 85 Respiratory Rate 28 H 22 Blood Pressure [Right Arm] 127/76 121/79 02 Sat by Pulse Oximetry 92 L 89 L 03/25/20 18:00 03/25/20 20:00 03/25/20 22:00 Temperature 97.9 F Pulse Rate 80 Pulse Rate [Right] 81 86 80 Respiratory Rate 20 20 22 Blood Pressure [Right Arm] 116/69 121/77 117/70 02 Sat by Pulse Oximetry 91 L 91 L 90 L 03/26/20 00:00 03/26/20 02:00 03/26/20 04:00 Temperature 98.0 F Pulse Rate 80 90 Pulse Rate [Right] 86 91 H 79 Respiratory Rate 23 22 20 Blood Pressure [Right Arm] 122/77 108/86 L 125/87 02 Sat by Pulse Oximetry 95 97 99 03/26/20 08:00 Temperature 97.5 F L Pulse Rate Pulse Rate [Right] 109 H Respiratory Rate 25 H Blood Pressure [Right Arm] 129/71 02 Sat by Pulse Oximetry 97 I & O for Last 24 hours: Intake & Output 03/23/20 03/24/20 03/25/20 03/26/20 23:59 23:59 23:59 23:59 Intake Total 610 / 610 3722 / 3722 2879 / 4217 1338 / 1338 Output Total 601 / 601 750 / 1170 420 / 420 Balance 610 / 509 3121 / 3121 2129 / 3047 918 / 918 Weight 235 lb 14.314 oz Microbiology Reports for the Last 24 Hours: Microbiology 03/24/20 03:40 Sputum - Expectorated Sputum Gram Stain - Final 03/24/20 03:40 Sputum - Expectorated Sputum Sputum Culture - Preliminary 03/23/20 04:15 Blood Blood Culture - Preliminary NO GROWTH AFTER 48 HOURS 03/23/20 04:15 Blood Blood Culture - Preliminary NO GROWTH AFTER 48 HOURS - Constitutional somnolent (unable to follow commands) - *Routine HEENT Exam Head: Present: normocephalic ENT: Present: mucous membranes moist - *Routine Neck Exam Present: supple. Absent: lymphadenopathy - *Routine Respiratory Exam Present: rhonchi, crackles (rare) - *Routine Cardiovascular Exam Present: irregularly irregular - *Routine Abdominal Exam Present: soft, normoactive bowel sounds. Absent: tenderness - *Routine Extremities Exam Absent: cyanosis, clubbing, edema - *Routine Skin Exam Present: warm. Absent: rash Assessment and Plan (1) A-fib Status: Chronic Qualifiers: Atrial fibrillation type: unspecified chronic Qualified Code(s): I48.20 - Chronic atrial fibrillation, unspecified Category: Medical Code(s): I48.91 - Unspecified atrial fibrillation (2) RENETTA (acute kidney injury) Status: Acute Category: Medical Code(s): N17.9 - Acute kidney failure, unspecified (3) COVID-19 virus detected Status: Acute Category: Medical Code(s): U07.1 - COVID-19 (4) Dementia Status: Acute Qualifiers:
--- NOTE | 2020-03-26 08:46 | PC.NURSE ---
@ 2114 PT STARTED TO DESAT SLOWLY TO 80% AND PT REQUIRED NRB 100% TO INCREASED OXYGENATION TO 88%. BY 2199 PT WAS MID 90S, DR MONROY NOTIFIED OF THIS CHANGE. PT RESTED QUIETING, CARDIZEM MAINTAINED AT 5MG/HR WITH RATE CONTROLLED AFIB OR FULLY V-PACED. PT WAS TURNED Q2 BY STAFF. NO BM THIS SHIFT. DIMINISHED AND SCATTERED RHONCHI NOTED ON LUNG AUSCULTATION. FLAPS REMOVED FROM MASK TO CREAT PARTIAL NON-REBREATHER AND PT SATS MAINTAINING MID90S.
--- NOTE | 2020-03-26 12:00 | PC.NURSE ---
1200 - Hr sustaining 110-120's, Cardizem gtt increased to 10 mls/hr
[2020-03-26 13:08] LABS: Free Valproic Acid (Depakote) 6.3
--- NOTE | 2020-03-26 15:15 | PC.NURSE ---
Sats consistently 97%, pt transitioned to a venturi mask @ 50%, sat currently 95%.
--- NOTE | 2020-03-26 17:13 | HMH.ACPN ---
Internal Medicine - PN: Subj *Date: 03/26/20 *Time: 17:13 Exam Vital signs and Labs for Last 24 Hours: Temp Pulse Resp BP Pulse Ox 97.9 F 100 H 24 133/79 93 L 03/26/20 16:46 03/26/20 16:46 03/26/20 16:46 03/26/20 16:46 03/26/20 16:46 Laboratory Results - last 24 hr 03/23/20 04:15: Free Valproic Acid 6.3 03/26/20 05:40: Sodium 148 H, Potassium 4.5, Chloride 120 H, Carbon Dioxide 19 L, Anion Gap 13.5, BUN 52 H, Creatinine 1.10, Estimated Creat Clear 82, Estimated GFR 65, Est GFR ( Amer) 78, Glucose 125 H, Calcium 8.7, Total Bilirubin 1.4 H, AST 62 H, ALT 51, Alkaline Phosphatase 111, Total Protein 6.1 L, Albumin 2.9 L, Globulin 3.2, Albumin/Globulin Ratio 0.9 L I & O for Last 24 hours: Intake & Output 03/23/20 03/24/20 03/25/20 03/26/20 23:59 23:59 23:59 23:59 Intake Total 610 / 610 3722 / 3722 2879 / 4217 2269 / 2269 Output Total 601 / 601 750 / 1170 570 / 570 Balance 610 / 509 3121 / 3121 2129 / 3047 1699 / 1699 Weight 107 kg 106.5 kg Microbiology Reports for the Last 24 Hours: Microbiology 03/24/20 03:40 Sputum - Expectorated Sputum Gram Stain - Final 03/24/20 03:40 Sputum - Expectorated Sputum Sputum Culture - Preliminary Gram Negative Rods Assessment and Plan (1) A-fib Status: Chronic Qualifiers: Atrial fibrillation type: unspecified chronic Qualified Code(s): I48.20 - Chronic atrial fibrillation, unspecified Category: Medical Code(s): I48.91 - Unspecified atrial fibrillation (2) RENETTA (acute kidney injury) Status: Acute Category: Medical Code(s): N17.9 - Acute kidney failure, unspecified (3) COVID-19 virus detected Status: Acute Category: Medical Code(s): U07.1 - COVID-19 (4) Dementia Status: Acute Qualifiers: Dementia type: unspecified type Dementia behavioral disturbance: without behavioral disturbance Qualified Code(s): F03.90 - Unspecified dementia without behavioral disturbance Category: Medical Code(s): F03.90 - Unspecified dementia without behavioral disturbance (5) HCAP (healthcare-associated pneumonia) Status: Acute Category: Medical Code(s): J18.9 - Pneumonia, unspecified organism (6) Sacral decubitus ulcer, stage II Status: Chronic Category: Medical Code(s): L89.152 - Pressure ulcer of sacral region, stage 2 (7) Severe sepsis with acute organ dysfunction Status: Acute Category: Medical Code(s): A41.9 - Sepsis, unspecified organism; R65.20 - Severe sepsis without septic shock (8) Chronic kidney disease, stage 3 Status: Chronic Category: Medical Code(s): N18.3 - Chronic kidney disease, stage 3 (moderate) (9) Cardiac pacemaker in situ Status: Chronic Category: Medical Code(s): Z95.0 - Presence of cardiac pacemaker (10) Hypertensive heart disease without heart failure Status: Chronic Category: Medical Code(s): I11.9 - Hypertensive heart disease without heart failure (11) Respiratory failure with hypoxia Status: Acute Category: Medical Code(s): J96.91 - Respiratory failure, unspecified with hypoxia (12) Atrial fibrillation with RVR Status: Acute Category: Medical Code(s): I48.91 - Unspecified atrial fibrillation The patient's infection will respond to the chosen ABx?: Yes Is the patient receiving the right drug, dose, and route?: Yes Could a more targeted ABx be ordered?: No
--- NOTE | 2020-03-26 18:05 | PC.NURSE ---
1750 - Spoke w/ Dr. Weeks about pt's PO intake, pt not alert enough to attempt to eat. MD aware and states no need for nutrition consult/ tube feed initiation.
--- NOTE | 2020-03-26 19:00 | PC.NURSE ---
No acute changes this shift. Pt slept most of the day. Continues to not follow commands, unable to take anything in PO. Turned and repositioned Q2H. Oral care provided. Bath given per staff. Tejeda cath to drain @ bedside w/ clear elizabeth urine. Tejeda care provided. No BM this shift. Bed alarm in place for safety. Cardizem remains @ 10 mls/hr.
--- NOTE | 2020-03-26 21:09 | PC.NURSE ---
He is awake in his room. He continues in contact and airborne precautions. He does not answer questions or follow commands. He continues with 50 venti-mask. Mask slides down at times. Has a polymen on place on his chin from previous shift. He is afib on telemetry at times and paced at other times. He continues on cardizem gtt. He is being turned and repositioned q 2 hours. Oral care provided. Heel protectors in place. Trace edema to bilateral hands. Right hand elevated. F/C patent and draining elizabeth, clear urine.
[2020-03-27] VITALS (29 sets, daily range): BP systolic 101–164; BP diastolic 71–100; PULSE 83–141; RESP 21–35; TEMP 36–36.8; O2SAT 86–100
--- NOTE | 2020-03-27 06:01 | PC.NURSE ---
He was placed on a non-rebreather per respiratory r/t decreasing O2 sats.
[2020-03-27 06:24] LABS: Basophils # 0.2 K/mm3 (0-0.2); Basophils % 0.8 % (0.1-2.0); Hematocrit 42.5 % (42.0-52.0); Lymphocytes # 0.8 K/mm3 (0.7-4.5); Mean Corpuscular HGB Conc 32.9 g/dL (31.8-35.4); Mean Corpuscular Hemoglobin 29.7 pg (27.0-31.2); Mean Corpuscular Volume 90.2 fl (80-94); Mean Platelet Volume 8.5 fl (7.4-10.4); Monocytes % 4.8 % (1.7-9.3); Neutrophils # 18.5 K/mm3 (1.8-7.8); Neutrophils % 90.4 % (37.0-80.0); Platelet Count 337 K/mm3 (142-424); Red Blood Count 4.71 M/mm3 (4.60-6.20); Red Cell Distribution Width 14.9 % (11.5-17.5); White Blood Count 20.4 K/mm3 (4.8-10.8)
[2020-03-27 06:36] LABS: Alanine Aminotransferase 85 U/L (12-78); Albumin Level 3.1 g/dl (3.5-5.0); Albumin/Globulin Ratio 0.9 (1.1-1.8); Alkaline Phosphatase 128 U/L (38-126); Anion Gap 10.6 mEq/L (5-15); Aspartate Amino Transferase 109 U/L (17-59); Bilirubin,Total 2.5 mg/dl (0.2-1.3); Blood Urea Nitrogen 46 mg/dl (9-20); Carbon Dioxide 18 mmol/L (22.0-30.0); Chloride 116 mmol/L (98-107); Creatinine Clearance Estimated 90 mL/min (50-200); Estimated Glomerular Filt Rate 72 ml/min (>60); GFR (African American) 87 ML/MIN (>60); Globulin 3.5 g/dL (1.3-3.2); Glucose 133 mg/dl (74-100); Potassium 4.6 mmoL/L (3.5-5.1); Sodium 140 mmol/L (136-145); Total Protein,Serum 6.6 g/dl (6.3-8.2)
[2020-03-27 06:41] LABS: MANUAL DIFFERENTIAL MANUAL DIFFERENTIAL (MANUAL DIFF)
--- NOTE | 2020-03-27 06:53 | PC.NURSE ---
pt bed unable to weigh pt this am nurse made aware.
--- NOTE | 2020-03-27 08:49 | HMH.ACPN2 ---
Internal Medicine - PN: Subj *Date: 03/27/20 *Time: 08:49 Interval history: No new issues reported this morning by nursing staff. Cardizem drip has been weaned down and is almost off now. Exam Vital signs and Labs for Last 24 Hours: Temp Pulse Resp BP Pulse Ox 97.5 F L 89 26 H 110/76 89 L 03/27/20 08:00 03/27/20 08:00 03/27/20 08:00 03/27/20 08:00 03/27/20 08:00 Laboratory Results - last 24 hr 03/23/20 04:15: Free Valproic Acid 6.3 03/27/20 05:30: Sodium 140, Potassium 4.6, Chloride 116 H, Carbon Dioxide 18 L, Anion Gap 10.6, BUN 46 H, Creatinine 1.00, Estimated Creat Clear 90, Estimated GFR 72, Est GFR ( Amer) 87, Glucose 133 H, Calcium 9.0, Total Bilirubin 2.5 H, AST 109 H D, ALT 85 H D, Alkaline Phosphatase 128 H, Total Protein 6.6, Albumin 3.1 L, Globulin 3.5 H, Albumin/Globulin Ratio 0.9 L 03/27/20 05:30: WBC 20.4 H* D, RBC 4.71, Hgb 14.0 L, Hct 42.5, MCV 90.2, MCH 29.7, MCHC 32.9, RDW 14.9, Plt Count 337 D, MPV 8.5, Neut % (Auto) 90.4 H, Lymph % (Auto) 4.0 L, [place] % (Auto) 4.8, Eos % (Auto) 0.0 L, Baso % (Auto) 0.8, Neut # (Auto) 18.5 H, Lymph # (Auto) 0.8, [place] # (Auto) 1.0, Eos # (Auto) 0.0, Baso # (Auto) 0.2 Vital Signs - 24 hr 03/26/20 10:00 03/26/20 12:00 03/26/20 14:55 Temperature 97.7 F 97.8 F Pulse Rate 121 H Pulse Rate [Right] 104 H 127 H 85 Respiratory Rate 26 H 25 H 26 H Blood Pressure [Right Arm] 119/73 137/77 130/71 02 Sat by Pulse Oximetry 95 95 96 03/26/20 16:00 03/26/20 16:46 03/26/20 17:46 Temperature 97.7 F 97.9 F 97.5 F L Pulse Rate 80 Pulse Rate [Right] 96 H 100 H 94 H Respiratory Rate 24 24 24 Blood Pressure [Right Arm] 126/82 133/79 121/77 02 Sat by Pulse Oximetry 92 L 93 L 94 L 03/26/20 18:30 03/26/20 18:39 03/26/20 20:00 Temperature 97.7 F 97.6 F Pulse Rate 77 110 H Pulse Rate [Right] 83 92 H Respiratory Rate 24 23 Blood Pressure [Right Arm] 137/85 138/89 02 Sat by Pulse Oximetry 92 L 92 L 90 L 03/26/20 21:00 03/26/20 22:00 03/26/20 23:00 Temperature Pulse Rate Pulse Rate [Right] 94 H 104 H 85 Respiratory Rate 23 20 23 Blood Pressure [Right Arm] 141/91 H 142/102 H 128/73 02 Sat by Pulse Oximetry 90 L 93 L 94 L 03/27/20 00:00 03/27/20 00:10 03/27/20 01:00 Temperature 97.2 F L 97.2 F L Pulse Rate 90 102 H Pulse Rate [Right] 103 H 105 H Respiratory Rate 27 H 22 Blood Pressure [Right Arm] 124/81 107/73 L 02 Sat by Pulse Oximetry 90 L 92 L 94 L 03/27/20 02:00 03/27/20 03:00 03/27/20 03:07 Temperature 97.0 F L Pulse Rate Pulse Rate [Right] 113 H 83 91 H Respiratory Rate 24 30 H Blood Pressure [Right Arm] 101/79 L 109/90 L 02 Sat by Pulse Oximetry 92 L 96 97 03/27/20 04:00 03/27/20 05:00 03/27/20 05:50 Temperature 97.4 F L Pulse Rate 90 120 H Pulse Rate [Right] 107 H 102 H Respiratory Rate 26 H 29 H Blood Pressure [Right Arm] 113/75 136/82 02 Sat by Pulse Oximetry 96 88 L 86 L 03/27/20 06:00 03/27/20 07:00 03/27/20 08:00 Temperature 97.2 F L 97.2 F L 97.5 F L Pulse Rate Pulse Rate [Right] 106 H 110 H 89 Respiratory Rate 26 H 28 H 26 H Blood Pressure [Right Arm] 124/76 121/78 110/76 02 Sat by Pulse Oximetry 95 95 89 L I & O for Last 24 hours: Intake & Output 03/24/20 03/25/20 03/26/20 03/27/20 23:59 23:59 23:59 23:59 Intake Total 3722 / 3722 2879 / 4217 2269 / 2269 Output Total 601 / 601 750 / 1170 1420 / 1620 451 / 451 Balance 3121 / 3121 2129 / 3047 849 / 649 -451 / -451 Weight 234 lb 12.677 oz Microbiology Reports for the Last 24 Hours: Microbiology 03/24/20 03:40 Sputum - Expectorated Sputum Gram Stain - Final 03/24/20 03:40 Sputum - Expectorated Sputum Sputum Culture - Preliminary Gram Negative Rods - Constitutional no acute distress (sedate) - *Routine HEENT Exam Head: Present: normocephalic ENT: Present: mucous membranes moist - *Routine Neck Exam Present: supple. Absent: lymphadenopathy - *Routine Respirat
[2020-03-27 09:21] LABS: Lymphocytes % 8 % (10-50); Monocytes % 10 % (2-9); Neutrophils % 82 % (42-76); Platelet Estimate Normal; RBC Morphology Normal; Total Cells Counted 100
--- NOTE | 2020-03-27 17:11 | PC.NURSE ---
no significant changes with patient. heart rate has remained elevate at times and requiring 10mg/hr of cardizem. sats on 100% nonrebreather are 88-92%. patient noted to have ronchi through out. labored breathing at times. remains afib on monitor. with some pace spikes at times. sstage 3 noted on coccyx and bilateral butt. [id number] provided and oral care. vitals stable.
--- NOTE | 2020-03-27 18:20 | PC.NURSE ---
relayed to md patient heart rate still fluctuating as high as 130s. but tends to come back down
--- NOTE | 2020-03-27 23:41 | PC.NURSE ---
He continues in contact and airborne precautions. He is unable to follow commands. Blink reflex present. Warm blankets were applied r/t lower temperature. his BLE are mottled and cool to touch from feet to his thighs. Oral care provided q 2 hours and PRN. Oral palate is excessively dry. Oral moisturizer applied frequently. Being turned and repositioned q 2 hours. F/c is patent and draining elizabeth, clear urine. Some leakage noted around meatus. Carmen-care provided as needed.
[2020-03-28] VITALS (27 sets, daily range): BP systolic 113–159; BP diastolic 72–96; PULSE 80–110; RESP 26–36; TEMP 35.4–36.2; O2SAT 89–96
--- NOTE | 2020-03-28 04:58 | PC.NURSE ---
nurse notified that this tech could not get an axillary temp at 0400. rectal temp is 95.8. Warm blankets and extra blankets applied.
--- NOTE | 2020-03-28 06:34 | PC.NURSE ---
weight could not be obtained due to bed not working and pt having a low temp and warming occurring.
--- NOTE | 2020-03-28 09:06 | XR_ITS ---
PROCEDURE: XR CHEST PORTABLE Referring Doctor: Roshan Weeks Patient Age:79Y CLINICAL HISTORY: Pneumonia covid positive dyspnea COMPARISON: DX CXR2V XR chest 2V from 02/22/2018 DX CXR2V XR chest 2V from 06/27/2018 CR XR CHEST PORTABLE from 03/23/2020 FINDINGS: AP semi-erect portable CXR performed today Bilateral pneumonia has developed and, progressed since March 23 CXR Right lung Patient developed a diffuse moderately dense infiltrate extending throughout the right mid lung, throughout RLL and right lung base Left lung. Midlung overall infiltrate is seen at the left mid lung and left lung base is less pronounced but there is a dense area of consolidation at the medial left lung base, retrocardiac region which obscures this silhouette of descending aorta Period there is blunting at the left CP angle could reflect a small pleural effusion Pacemaker overlying the left chest with leads appearing stable. Intact. Mild cardiomegaly. Pulmonary vascularity appears normal to upper normal. Chest wall unremarkable. Hilar regions appear satisfactory. Partially calcified aorta knob. IMPRESSION: Bilateral pneumonia-significant progression findings since March 23 Right lung: Most obvious diffuse progressive pneumonia throughout the right mid on right lower lung field Left lung: Also infiltrate at the left mid lung left base including most dense area consolidation at medial retrocardiac LLL obscuring the descending aorta shadow Minimal blunting left CP angle may reflect small left pleural effusion Pacemaker. Cardiomegaly. Dictated by: Jan Montero MD 03/28/2020 10:47 Jan Montero MD in [place] 03/28/2020 10:47
--- NOTE | 2020-03-28 09:14 | HMH.ACPN2 ---
Internal Medicine - PN: Subj *Date: 03/28/20 *Time: 09:14 Interval history: Pt unchanged overnight Exam Vital signs and Labs for Last 24 Hours: Temp Pulse Resp BP Pulse Ox 96.8 F L 90 33 H 136/89 94 L 03/28/20 09:03 03/28/20 09:03 03/28/20 09:03 03/28/20 09:03 03/28/20 09:03 Laboratory Results - last 24 hr 03/27/20 05:30: Total Counted 100, Neutrophils % (Manual) 82 H, Lymphocytes % (Manual) 8 L, Monocytes % (Manual) 10 H, Platelet Estimate Normal, RBC Morphology Normal Vital Signs - 24 hr 03/27/20 10:00 03/27/20 11:00 03/27/20 11:15 Temperature 97.2 F L 97.2 F L Pulse Rate 118 H Pulse Rate [Right] 101 H 100 H Respiratory Rate 26 H 24 Blood Pressure [Right Arm] 116/83 119/93 H 02 Sat by Pulse Oximetry 92 L 94 L 03/27/20 12:00 03/27/20 12:48 03/27/20 14:00 Temperature 97.2 F L 97.1 F L 97.2 F L Pulse Rate 100 H Pulse Rate [Right] 103 H 113 H 98 H Respiratory Rate 28 H 28 H 28 H Blood Pressure [Right Arm] 118/88 119/71 153/83 H 02 Sat by Pulse Oximetry 90 L 90 L 88 L 03/27/20 15:00 03/27/20 16:00 03/27/20 17:00 Temperature 97.0 F L 97.2 F L 98.3 F Pulse Rate 110 H Pulse Rate [Right] 103 H 125 H 106 H Respiratory Rate 30 H 35 H 33 H Blood Pressure [Right Arm] 139/88 139/87 141/74 H 02 Sat by Pulse Oximetry 88 L 87 L 90 L 03/27/20 18:00 03/27/20 18:58 03/27/20 20:00 Temperature 98.1 F 96.8 F L Pulse Rate 99 H 100 H Pulse Rate [Right] 107 H 116 H 104 H Respiratory Rate 30 H 25 H 22 Blood Pressure [Right Arm] 159/98 H 137/85 154/100 H 02 Sat by Pulse Oximetry 88 L 89 L 90 L 03/27/20 21:00 03/27/20 22:00 03/27/20 23:00 Temperature 97.1 F L Pulse Rate Pulse Rate [Right] 112 H 106 H 105 H Respiratory Rate 26 H 21 25 H Blood Pressure [Right Arm] 164/96 H 137/98 H 148/84 H 02 Sat by Pulse Oximetry 86 L 91 L 88 L 03/27/20 23:09 03/28/20 00:00 03/28/20 01:00 Temperature 96.6 F L Pulse Rate 100 H Pulse Rate [Right] 89 84 Respiratory Rate 27 H 29 H Blood Pressure [Right Arm] 129/79 129/72 02 Sat by Pulse Oximetry 100 91 L 90 L 03/28/20 02:00 03/28/20 02:10 03/28/20 03:00 Temperature 96.4 F L Pulse Rate Pulse Rate [Right] 84 104 H 82 Respiratory Rate 28 H 30 H Blood Pressure [Right Arm] 122/74 138/78 02 Sat by Pulse Oximetry 96 92 L 90 L 03/28/20 04:00 03/28/20 05:00 03/28/20 06:00 Temperature 95.8 F L Pulse Rate 90 Pulse Rate [Right] 93 H 104 H 97 H Respiratory Rate 29 H 31 H 30 H Blood Pressure [Right Arm] 145/90 H 159/82 H 133/82 02 Sat by Pulse Oximetry 93 L 89 L 90 L 03/28/20 07:28 03/28/20 08:00 03/28/20 09:03 Temperature 96.2 F L 96.8 F L Pulse Rate 101 H Pulse Rate [Right] 98 H 90 Respiratory Rate 31 H 33 H Blood Pressure [Right Arm] 127/85 136/89 02 Sat by Pulse Oximetry 95 96 94 L I & O for Last 24 hours: Intake & Output 03/25/20 03/26/20 03/27/20 03/28/20 23:59 23:59 23:59 23:59 Intake Total 2879 / 4217 2269 / 2269 1929 / 1929 0 / 0 Output Total 750 / 1170 1420 / 1620 701 / 701 200 / 200 Balance 2129 / 3047 849 / 649 1228 / 1228 -200 / -200 Weight 234 lb 12.677 oz Microbiology Reports for the Last 24 Hours: Microbiology 03/24/20 03:40 Sputum - Expectorated Sputum Gram Stain - Final 03/24/20 03:40 Sputum - Expectorated Sputum Sputum Culture - Final Klebsiella pneumoniae#2 Klebsiella pneumoniae Yeast 03/23/20 04:15 Blood Blood Culture - Final NO GROWTH AFTER 5 DAYS 03/23/20 04:15 Blood Blood Culture - Final NO GROWTH AFTER 5 DAYS - *Routine Respiratory Exam Present: rhonchi (few, mainly clear). Absent: wheezes - *Routine Cardiovascular Exam Present: irregularly irregular - *Routine Extremities Exam Present: pulses intact Assessment and Plan (1) A-fib Status: Chronic Qualifiers: Atrial fibrillation type: uns
--- NOTE | 2020-03-28 17:49 | PC.NURSE ---
patient continues to require nonrebreather. cardizem drip on 5mg/hr with a heart rate 80-115. noted to be afib and paced at times. bp has been stable. continues to mouth breath and requires frequent oral care. [id number] provied. dressing on coccyx changed. continuing with multiple blankets for lower temp. continues to be unable to follow commands. labored breathing at times. total care. vitals stable.
[2020-03-29] VITALS: BP 147/85; PULSE 100; PULSE 90; RESP 30; TEMP 35.8; O2SAT 91
[2020-03-29 00:42] VITALS: PULSE 101
[2020-03-29 00:46] VITALS: PULSE 98
--- NOTE | 2020-03-29 02:38 | HMH.DEATH ---
Pronouncement Note - Date and Time of Date of : 03/29/20 Time of : 01:36 - PCOD Preliminary cause of : Acute respiratory failure - Summary Additional details: covid-19 - Additional Data Confirmation of : no pulse Family: contacted Attending/PCP notified?: Yes Attending physician: Roshan Weeks MD Was code activated?: No Autopsy requested?: No certified driver examiner notified?: No Organ bank notified?: Yes Advance directives: Yes
--- NOTE | 2020-03-29 03:13 | PC.NURSE ---
Initial assesment: Pt in airborne and contact precautions. No speech. Spontaneous eye opening. Continued on non-rebreather. Oral care provided q 2 hours and PRN. Excessively dry oral palate and tongue noted with discoloration. F/c patent with elizabeth urine. At approx. 0135 SRNA called nurse to the room r/t shallow respirations and rate of 12 a minute. Upon entering room pt's heart stopped, respirations ceased. Pt is a DNR. Dr. Mackey notified and gave permission to request ER to pronounce. Dr. Garcia pronounced. Post-mortem care provided via staff x2. Lulu Beasley notified at [phone]. She was tearful but did not want staff to notify any of her family for her. Permission given to contact [facility] to release body.
--- NOTE | 2020-03-29 23:42 | PC.NURSE ---
Late entry: Case number from [facility] was [id number]
--- NOTE | 2020-03-30 11:37 | HMH.DCSUM ---
General - General Admission date:: 03/23/20 <DesiRoshan - 03/31/20 08:32> 03/23/20 <Akua Cordon - 03/30/20 11:46> Discharge date: 03/29/20 <NerisAkua - 03/30/20 11:46> HPI HPI: Mr. Beasley was a 79-year-old male with a history of hypothyroidism, hypertension, atrial fibrillation, and dementia. [place] [facility] [place] progressive chest congestion and decrease in O2 sats. He was diagnosed with Covid 19 and started on Pepcid, Zinc, Vit D, Vit C at [facility] when first diagnosed; he also received Bamlanivimab IV at [facility] 03/12/2020. With evaluation in the ER pt was found to have a Temp of 100.8. O2 sats ranged from 89-92 on O2 . He was in at fib with a varying Ventricular response from 110-120. WBC was 10,000; BUN/CR 54/1.6; LFT's were noted to be elevated. COVID IGG was + and IGM neg; PCR was + as well. CXR results pending at time of this exam. Pt was felt to have HCAP with dehydration and was thus admitted. At the time of this exam pt was nonverbal. He did open his eyes during the exam <Akua Cordon - 03/30/20 11:46> Hospital Course Hospital Course: Patient's body was released to [facility] home. <Roshan Weeks - 03/31/20 08:32> The patient was admitted and started on Covid protocol along with Lovenox. He was also started on cefepime and Levaquin due to his healthcare acquired pneumonia. He was started on a Cardizem drip for his A. fib with rapid ventricular response. His heart rate did improve. His oxygen was stable on a Ventimask at 35%. He remained nonverbal, which was his normal status. His blood culture showed no growth at 48 hours. He did become hypoxic on 03/26/2020 and had to be placed on a nonrebreather. His Cardizem drip was weaned down. He had a repeat chest x-ray on 03/28/2020 showing bilateral pneumonia with significant progressive findings from the March 23 chest x-ray. His sputum grew Klebsiella pneumoniae and yeast. The patient began having shallow respirations at a rate of 12/min on 03/29/2020 and his heart stopped and respirations ceased. He was a DNR and Dr. Mackey was notified and gave permission to request the ER MD to pronounce. Dr. Garcia came to the room and pronounced the patient. The patient's was notified and the patient's body was released to [facility] home. <Akua Cordon - 03/30/20 11:46> Objective Vital signs: Temp Pulse Resp BP Pulse Ox 96.5 F L 98 H 30 H 147/85 H 91 L 03/29/20 00:00 03/29/20 00:46 03/29/20 00:00 03/29/20 00:00 03/29/20 00:00 <Roshan Weeks - 03/31/20 08:32> Temp Pulse Resp BP Pulse Ox 96.5 F L 98 H 30 H 147/85 H 91 L 03/29/20 00:00 03/29/20 00:46 03/29/20 00:00 03/29/20 00:00 03/29/20 00:00 <Akua Cordon - 03/30/20 11:46> Narrative: - Constitutional no acute distress - *Routine HEENT Exam Head: Present: normocephalic, atraumatic Eye: Present: PERRL. Absent: conjunctival icterus, scleral injection ENT: Present: mucous membranes dry, oropharynx clear - *Routine Neck Exam Present: supple. Absent: carotid bruit, lymphadenopathy, thyromegaly - *Routine Respiratory Exam Present: rhonchi (bilateral) - *Routine Cardiovascular Exam Present: irregular rhythm (monitor showing At Fib 110-120) - *Routine Abdominal Exam Present: soft, normoactive bowel sounds. Absent: tenderness, distended - *Routine Extremities Exam Absent: edema, calf tenderness - *Routine Neurological Exam Absent: alert opopens eyes during exam; non-verbal <Akua Cordon - 03/30/20 11:46> DS: Diagnosis - Discharge Diagnosis (1) A-fib Status: Chronic (2) RENETTA (acute kidney injury) Status: Acute (3) COVID-19 virus detected Status: Acute (4) Dementia Status: Acute (5) HCAP (healthcare-associated pneumonia) Status: Acute (6) Sacral decubitus ulcer, stage II Status: Chronic (7) Severe sepsis with acute organ dysfunction Stat
== END 2020-03-29 04:40 | disposition expired | DRG 177 ==
LOC: ER 04:33 → ICU 08:11
PROVIDERS: Nurse Practitioner Family; Admitting Provider Family Medicine; Emergency Provider Emergency Medicine; PCP Family Medicine; Visit Provider Family Medicine
DX: U07.1 COVID-19 (principal); J12.82 Pneumonia due to coronavirus disease 2019; J96.01 Acute respiratory failure with hypoxia; A41.9 Sepsis, unspecified organism; R65.20 Severe sepsis without septic shock; N17.9 Acute kidney failure, unspecified; E03.9 Hypothyroidism, unspecified; Z79.82 Long term (current) use of aspirin; Z79.899 Other long term (current) drug therapy; I12.9 Hypertensive chronic kidney disease with stage 1 through stage 4 chronic kidney disease, or unspecified chronic kidney disease; N18.30 Chronic kidney disease, stage 3 unspecified; F03.90 Unspecified dementia, unspecified severity, without behavioral disturbance, psychotic disturbance, mood disturbance, and anxiety; L89.152 Pressure ulcer of sacral region, stage 2; Z95.0 Presence of cardiac pacemaker
CPT/HCPCS: 71045; 80048; 80053; 80165; 81001; 82803; 83605; 84145; 84436; 84443; 84484; 85007; 85025; 85651; 86140; 86328; 87040; 87070; 87077; 87186; 87205; 93005; 94640; 94760; 94761; 96365; 96366; 96375; 99282; J1956; U0003